=== PATIENT | male | born 1985 | race Caucasian/White ===

== ENCOUNTER 2019-08-06 02:18 | Emergency (ER) | payer MEDICAID ==
[~2019-08-06] VITALS: Ht 172.7 cm; Wt 68.2 kg
[2019-08-06 02:22] VITALS: Ht 172.7 cm; Wt 68.2 kg
[2019-08-06] MEDS ORDERED: SEROQUEL300 MG PO (02:23)
[2019-08-06 02:53] LABS: BASOPHILS 0.2 % (0-2); EOSINOPHILS 1.4 % (0-7); HEMATOCRIT 44.7 % (42.0-54.0); HEMOGLOBIN 14.5 g/dL (13.5-17.5); LYMPHOCYTES 28.3 % (15-50); MCH 28.6 pg (26.0-34.0); MCHC 32.4 g/dL (31.0-37.0); MCV 88.2 fL (80.0-100.0); MEAN PLATELET VOLUME 8.6 fL (7.4-10.4); MONOCYTES 11.4 % (2-11); NEUTROPHILS 58.7 % (40-80); PLATELET COUNT 260 10x3/uL (130-400); RBC 5.07 10x6/uL (4.20-6.10); RDW 13.6 % (11.5-14.5); WBC 5.5 10x3/uL (4.8-10.8)
[2019-08-06 03:03] LABS: BILIRUBIN NEGATIVE (NEGATIVE); CALC OSMOLALITY 274 mosm/kg (275-300); CALCIUM 8.3 mg/dL (8.5-10.1); CARBON DIOXIDE 29.7 mmol/L (21.0-32.0); CHLORIDE - SERUM 102 mmol/L (98-107); CREATININE - SERUM 0.9 mg/dL (0.6-1.3); GLUCOSE 118 mg/dL (74-106); GLUCOSE NEGATIVE (NEGATIVE); KETONE NEGATIVE (NEGATIVE); NITRITE NEGATIVE (NEGATIVE); POTASSIUM - SERUM 4.5 mmol/L (3.5-5.1); SODIUM 137 mmol/L (136-145); UREA NITROGEN 12 mg/dL (7-18); UROBILINOGEN NORMAL (NORMAL); eGFR NON AFRICAN AMERICAN > 90 mL/min (90-120)
[2019-08-06 03:08] LABS: ALBUMIN 3.9 g/dL (3.4-5.0); ALKALINE PHOSPHATASE 43 U/L (30-120); ALT (SGPT) 21 U/L (10-68); BILIRUBIN - TOTAL 0.51 mg/dL (0.2-1.3); MAGNESIUM - SERUM 1.8 mg/dL (1.8-2.4); PROTEIN - SERUM 7.1 g/dL (6.4-8.2)
[2019-08-06 03:13] LABS: UDS - AMPHET NEGATIVE QUAL (NEGATIVE); UDS - BARB NEGATIVE QUAL (NEGATIVE); UDS - BENZO NEGATIVE QUAL (NEGATIVE); UDS - COCAINE NEGATIVE QUAL (NEGATIVE); UDS - OPIATE NEGATIVE QUAL (NEGATIVE); UDS - PCP NEGATIVE QUAL (NEGATIVE); UDS - THC NEGATIVE QUAL (NEGATIVE)
--- NOTE | 2019-08-06 03:21 | NUR ---
DOCTOR ARIAS NOTIFIED AND REVIEW PATIENT ASSESSMENT AND HISTORY. DOCTOR ARIAS STATES PATIENT IS A LOW RISK. DOCTOR ARIAS STATES TO GIVE PATIENT RESOURCES AND EDUCATION UPON DISCHARGE.
[2019-08-06 06:45] VITALS: BP 124/75
== END 2019-08-06 06:45 | disposition home or self-care (01) ==
LOC: EDBD 02:18 → D.ER 02:18
PROVIDERS: Family Medicine
DX: F20.9 Schizophrenia, unspecified (principal); F22 Delusional disorders; R44.3 Hallucinations, unspecified

== ENCOUNTER 2019-09-06 07:23 | Emergency (ER) | payer MEDICAID ==
[~2019-09-06] VITALS: Ht 172.7 cm; Wt 63.6 kg
[~2019-09-06 07:23] MED LIST: SEROQUEL300 MG PO
[2019-09-06 07:24] VITALS: Ht 172.7 cm; Wt 63.6 kg
[2019-09-06 10:30] VITALS: BP 120/76
== END 2019-09-06 11:20 | disposition home or self-care (01) ==
LOC: D.ER 07:23
DX: S81.812A Laceration without foreign body, left lower leg, initial encounter (principal); F10.129 Alcohol abuse with intoxication, unspecified; Y90.9 Presence of alcohol in blood, level not specified; X99.9XXA Assault by unspecified sharp object, initial encounter; Y93.9 Activity, unspecified; Y92.9 Unspecified place or not applicable

== ENCOUNTER 2019-10-29 22:48 | Emergency (ER) | payer MEDICAID ==
[2019-10-29 22:51] VITALS: BP 97/52; Ht 172.7 cm
== END 2019-10-29 23:20 | disposition left against medical advice (07) ==
LOC: D.ER 22:48
DX: R44.0 Auditory hallucinations (principal); R46.89 Other symptoms and signs involving appearance and behavior